=== PATIENT | male | born 1965 | race Two or more races ===

== ENCOUNTER → 2019-11-05 | Day surgery (SDC) | payer OTHER ==
[~2019-11-05] MED LIST: ANESTHESIA TRAY IN PYXIS 1 EA TRAY MC ONE; BUPIVACAINE 0.5 % PF 150 MG/30 ML VIAL ONE; FENTANYL PF 100MCG/2ML AMPUL ONE; HYDROCODONE/APAP 10/325MG 1 EA TABLET ONE
== END | disposition home or self-care (01) ==
LOC: DS 08:30
PROVIDERS: ATTEND Orthopaedic Surgery
DX: G56.02 Carpal tunnel syndrome, left upper limb (principal); M65.322 Trigger finger, left index finger; I10 Essential (primary) hypertension; Z79.899 Other long term (current) drug therapy
CPT/HCPCS: 26055; 64721; A4565; A6402; J3010; J3490; J0690; J1100; J2405; J2704; J2765

== ENCOUNTER 2020-02-04 08:40 | Day surgery (SDC) | payer OTHER ==
[2020-02-04] MEDS ORDERED: MIDAZOLAM HCL 2 MG/2ML VIAL ONE (09:56)
[2020-02-04] MEDS ORDERED: FENTANYL PF 250MCG/5ML AMPUL ONE (09:57)
[2020-02-04] MEDS ORDERED: FAMOTIDINE/PF INJ 20 MG/2 ML VIAL IV ONE (09:57)
[2020-02-04] MEDS ORDERED: ANESTHESIA TRAY IN PYXIS 1 EA TRAY MC ONE (10:20)
[2020-02-04] MEDS ORDERED: BUPIVACAINE 0.5 % PF 150 MG/30 ML VIAL ONE (11:33)
== END 2020-02-04 18:00 | disposition home or self-care (01) ==
LOC: DS 08:40
PROVIDERS: ATTEND Orthopaedic Surgery
DX: G56.01 Carpal tunnel syndrome, right upper limb (principal); M65.88 Other synovitis and tenosynovitis, other site; E78.5 Hyperlipidemia, unspecified; I10 Essential (primary) hypertension; I45.10 Unspecified right bundle-branch block; E66.01 Morbid (severe) obesity due to excess calories; Z79.899 Other long term (current) drug therapy; L90.5 Scar conditions and fibrosis of skin
CPT/HCPCS: 25115; 64721; 87635; A6402; J0690; J2250; J2405; J2704; J2765; J3010; J3490 ×3